=== PATIENT | female | born 1985 | race Caucasian/White ===

== ENCOUNTER → 2024-12-25 | Outpatient (CLI) | payer BC, SELFPAY ==
[2024-12-26 08:42] LABS: BVAG Candida Negative (Negative); Bacterial Vaginosis Markers Positive (Negative); Candida glabrata Negative (Negative); Candida krusei PCR Negative (Negative); Trichomonas Negative (Negative)
== END | disposition home or self-care (01) ==
LOC: SLDO 14:47
PROVIDERS: Referring Provider Physician Assistant Medical; Visit Provider Physician Assistant Medical
DX: N76.0 Acute vaginitis (principal); A59.01 Trichomonal vulvovaginitis; B37.89 Other sites of candidiasis
CPT/HCPCS: 81514

== ENCOUNTER → 2025-05-06 | Outpatient (CLI) | payer BC, SELFPAY ==
[2025-05-06 11:47] LABS: Alanine Aminotransferase 15 U/L (10-49); Albumin, Serum 4.4 gm/dL (3.5-5.0); Alkaline Phosphatase 40 U/L (46-116); Aspartate Amino Transferase 17 U/L (0-34); Bilirubin,Direct 0.1 mg/dL (0.0-0.3); Bilirubin,Total 0.5 mg/dL (0.3-1.2); Cardiac Risk Estimate 2.5 RATIO (3.7-5.6); Cholesterol 161 mg/dL (132-200); HDL Cholesterol 64 mg/dL (40-60); LDL Cholesterol,Calculated 76 mg/dL (0-130); Total Protein 6.7 gm/dL (5.7-8.2); Triglycerides 104 mg/dL (30-150)
== END | disposition home or self-care (01) ==
LOC: COPL 09:59
PROVIDERS: PCP Family Medicine; Referring Provider Family Medicine; Visit Provider Family Medicine
DX: Z00.00 Encounter for general adult medical examination without abnormal findings (principal); B35.1 Tinea unguium
CPT/HCPCS: 36415; 80061; 80076